=== PATIENT | female | born 2005 | race Hispanic/Latino ===

== ENCOUNTER 2024-06-13 23:53 | Emergency (ER) | payer BC ==
[~2024-06-13] VITALS: Ht 149.9 cm; Wt 56.7 kg
--- NOTE | 2024-06-14 00:15 | ERN ---
General Chief Complaint: Nausea,Vomiting,Diarrhea Stated Complaint: N/V/ABD PAIN Time Seen by MD: 00:02 Source: patient History of Present Illness Initial Comments Patient is a healthy 18-year-old female who has been experiencing nausea and emesis since 3:00 a.m. yesterday i.e. 9 hours. And now comes in feeling numbness and tingling in her hands and feet and feeling like she has double vision even though she does not and some numbness in her lips as well. She states no fever but positive chills. No one else in the household has the symptoms Allergies: Coded Allergies: No Known Allergies (Unverified Allergy, Unknown, 06/13/24) Past Medical History Past Medical History: No Pertinent History Past Surgical History: None Female( History) LMP: May 27, 2024 Constitutional: (+) chills EENTM: (-) eye pain, (-) blurred vision, (-) tearing, (-) double vision, (-) ear pain, (-) ear discharge, (-) nose pain, (-) nose congestion, (-) throat pain, (-) Throat swelling, (-) mouth pain, (-) tooth pain, (-) mouth swelling, (-) other documentation Respiratory: (-) cough, (-) orthopnea, (-) short of breath, (-) stridor, (-) wheezing, (-) other documentation Cardiovascular: (-) chest pain, (-) edema, (-) palpitations, (-) syncope, (-) dyspnea on exertion, (-) other documentation Gastrointestinal/Abdominal: (+) nausea, (+) vomiting Musculoskeletal: (-) Neck pain, (-) back pain, (-) Flank Pain, (-) joint pain, (-) joint swelling, (-) muscle pain, (-) muscle stiffness, (-) gout, (-) other documentation Skin: (-) laceration, (-) contusion, (-) abrasion, (-) abscess, (-) rash, (-) change in color, (-) change in hair, (-) change in nails, (-) diaphoresis, (-) dryness, (-) other documentation Neuro: (-) altered mental status, (-) headache, (-) syncope, (-) paralysis, (-) numbness, (-) seizure, (-) pre-existing deficit, (-) tremors, (-) weakness, (-) dizziness, (-) slurred speech, (-) vertigo, (-) other documentation Physical Exam General Appearance: (+) mild distress Orientation: (+) oriented x 3 Head/Face Trauma: No Eye: bilateral eye normal inspection, bilateral eye PERRL, bilateral eye EOMI Ear, Nose, Throat: (+) hearing grossly normal, (+) normal ENT inspection, (+) normal pharynx Neck: (+) normal inspection, (+) supple, (+) full range of motion Respiratory: (+) chest non-tender, (+) lungs clear, (+) well ventilated Heart: (+) regular, (+) no gallop Vascular: (+) no edema, (+) normal peripheral pulse Gastrointestinal: (+) soft, (+) non-tender, (+) bowel sound present Results Laboratory and Microbiology Lab and Micro Result Laboratory Tests Test 06/14/24 00:01 06/14/24 00:32 Urine Color LIGHT-YELLOW (YELLOW) Urine Appearance CLEAR (CLEAR) Urine pH 6.0 (5.0-8.0) Urine Specific [place] 1.023 (1.001-1.031) Urine Protein 10 mg/dL (NEGATIVE) H Urine Glucose (UA) NEGATIVE mg/dL (NEGATIVE) Urine Ketones 60 mg/dL (NEGATIVE) H Urine Occult Blood NEGATIVE (NEGATIVE) Urine Nitrate NEGATIVE (NEGATIVE) Urine Bilirubin NEGATIVE mg/dL (NEGATIVE) Urine Urobilinogen 0.2 mg/dL (0.2-1.0) Urine Leukocyte Esterase NEGATIVE Vincenzo/uL Urine RBC 0-1 /HPF (0-1) Urine WBC 2-5 /HPF (0-1) H Urine Squamous Epithelial Cells RARE /HPF (0-2) Urine Bacteria FEW /HPF (None Seen) Urine HCG, Qualitative NEGATIVE (NEGATIVE) White Blood Count 13.1 K/uL (4.8-10.8) H Red Blood Count 4.38 MIL/uL (4.00-5.50) Hemoglobin 12.2 g/dL (12.0-16.0) Hematocrit 37.1 % (36-48) Mean Corpuscular Volume 84.7 fL (80-100) Mean Corpuscular Hemoglobin 27.9 pg (27.0-33.0) Mean Corpuscular Hemoglobin Concent 32.9 g/dL (32.0-36.0) Red Cell Distribution Width 12.7 % (11.0-15.5) Platelet Count 336 K/uL (130-400) Mean Platelet Volume 11.4 fL (7.5-10.5) H Immature Granulocyte % (Auto) 0.4 % (0-1) Neutrophils (%) (Auto) 88.1 % (40.0-77.0) H Lymphocytes (%) (Auto) 5.3 % (21.0-51.0) L Monocytes (%) (Auto) 5.9 % (3.0-13.0) Eosinophils (%) (Auto) 0.1 % (0.0-8.0) Basophils (%) (Auto) 0.2 % (0.0-5.0) Neutrophils # (Auto) 11.6 K/uL (1.8-7.7) H Lymphocytes # (Auto) 0.7 K/uL (1.0-4.8) L Monocytes # (Auto) 0.8 K/uL (0.1-1.0) Eosinophils # (Auto) 0.01 K/uL (0.00-0.70) Basophils # (Auto) 0.03 K/uL (0.00-0.20) Absolute Immature Granulocyte (auto 0.05 K/uL (0-1) Nucleated Red Blood Cells 0.0 % (0.0-0.19) White Cell Morphology Comment See comments Sodium Level 136 mmol/L (136-145) Potassium Level 4.3 mmol/L (3.5-5.1) Chloride Level 99 mmol/L (101-111) L Carbon Dioxide Level 31 mmol/L (21-32) Blood Urea Nitrogen 13 mg/dL (7-18) Creatinine 0.6 mg/dL (0.5-1.0) Glomerular Filtration Rate Calc 133 mL/min (>90) Random Glucose 116 mg/dL (70-105) H Total Calcium 9.2 mg/dL (8.5-10.1) MDM I suspect the patient is dehydrated and that is the cause of most of her symptom s. I will start by giving her fluid measuring her orthostatic vital signs and drank chemistry and CBC and UA. This orthostatic vital signs are highly suggestive of dehydration. From lying to standing the heart rate goes from 99-114 the systolic pressure goes from 119- 101. After 2 L of fluid the patient's states that she feels better. She is able to get out of bed and walk. She has had no nausea or vomiting since I gave her the Zofran. She is still concerned about this funny visual sensation she has where she feels like her eyeballs are in her forehead. I told her to drink lots of fluid until she urine is clear and then she will know that her fluid is adequate. I have no ideas about her eye pain she should see her primary care physician and maybe go see an break off worker. I wrote for a prescription for Zofran. ED Course Orders Procedure Category Date Status Time Urinalysis Profile LAB 06/14/24 Complete 00:00 ,Urine Test LAB 06/14/24 Complete 00:00 Cbc With Differential LAB 06/14/24 Complete 00:15 Lactated Ringers PHA 06/14/24 Complete 1000ml (Lactated 00:30 Ondansetron 4mg Inj PHA 06/14/24 Complete (Zofran 4mg Inj) 00:30 Basic Metabolic Panel LAB 06/14/24 Complete 00:15 Orthostatic Vital CPOE 06/14/24 Transmitted Signs 00:15 Lactated Ringers PHA 06/14/24 Complete 1000ml (Lactated 01:52 Potassium Chl 10% PHA 06/14/24 Complete Elixir 20meq (Kcl 10% 02:00 Sod Borate/Boric PHA 06/14/24 Complete Ac/H2o/Nacl (Eye Wash 02:30 Current Medications Medications (Trade) Dose Ordered Sig/Cinthia Route PRN Reason Start Time Stop Time Status Last Admin Dose Admin Irrigating Solution (Eye Wash Solution) 120 ml ONCE ONCE OP 06/14/24 02:30 06/14/24 02:31 DC 06/14/24 02:21 Lactated Ringer's 1,000 ml @ 0 mls/hr ONCE ONCE IV 06/14/24 00:30 06/14/24 00:31 DC 06/14/24 00:32 Lactated Ringer's (Lactated Ringers 1000ml) 1,000 ml BOLUS STAT IV 06/14/24 01:52 06/14/24 01:55 DC 06/14/24 02:16 Ondansetron HCl (zoFRAN 4MG INJ) 4 mg ONCE ONCE IVP 06/14/24 00:30 06/14/24 00:31 DC 06/14/24 00:32 Potassium Chloride (KCl 10% Elixir 20meq/15ml) 20 meq ONCE ONCE PO 06/14/24 02:00 06/14/24 02:01 DC 06/14/24 02:14 Vital Signs Date Time Temp Pulse Resp B/P (MAP) Pulse Ox O2 Delivery O2 Flow Rate FiO2 06/14/24 02:32 89 16 116/53 99 Room Air* 0 21 06/14/24 00:18 114 16 101/53 96 Room Air* 0 21 06/14/24 00:16 106 16 108/58 98 Room Air* 0 21 06/14/24 00:14 99 16 119/56 96 Room Air* 0 06/14/24 00:10 97.5 106 16 103/61 99 Room Air* 0 06/13/24 23:54 97.2 109 18 137/67 98 Room Air DX & DISP Disposition: Discharge Departure Impression: Primary Impression: Dehydration determined by examination Condition: Stable Scripts Promethazine HCl (Phenergan) 6.25 Mg/5 Ml Syrup 10 ML PO QID for motion sickness, #400 ML 0 Refills Prov: WILBER ESCOBAR MD 06/14/24 WILBER ESCOBAR MD Jun 14, 2024 00:15
[2024-06-14 00:27] LABS: APPEARANCE,URINE CLEAR (CLEAR); BILIRUBIN,URINE NEGATIVE (NEGATIVE); COLOR,URINE LIGHT-YELLOW (YELLOW); GLUCOSE, URINE (UA) NEGATIVE (NEGATIVE); KETONES,URINE 60 mg/dL (NEGATIVE); LEUKOCYTE ESTERASE ,URINE NEGATIVE Leu/uL (NEGATIVE); NITRATE,URINE NEGATIVE (NEGATIVE); OCCULT BLOOD,URINE NEGATIVE (NEGATIVE); PROTEIN,URINE 10 mg/dL (NEGATIVE); UROBILINOGEN,URINE 0.2 mg/dL (0.2-1.0)
[2024-06-14] MEDS: ondanSETRON 4MG INJ IVP ONE (00:32)
[2024-06-14] MEDS: LACTATED RINGERS 1000ML 1,000 ML IV ONE (00:32)
[2024-06-14 00:41] LABS: ADD UA MICROSCOPIC NO
[2024-06-14 00:43] LABS: BACTERIA,URINE FEW /HPF (None Seen); MUCUS,URINE RARE LPF (None Seen); RBC,URINE 0-1 /HPF (0-1); SQUAMOUS EPITHELIAL CELL,UR RARE /HPF (0-2)
[2024-06-14 00:52] LABS: BASOPHILS # (AUTO) 0.03 K/uL (0.00-0.20); BASOPHILS % (AUTO) 0.2 % (0.0-5.0); EOSINOPHILS # (AUTO) 0.01 K/uL (0.00-0.70); EOSINOPHILS % (AUTO) 0.1 % (0.0-8.0); HEMATOCRIT 37.1 % (36-48); IMMATURE GRANULOCYTE ABSOLUTE 0.05 K/uL (0-1); LYMPHOCYTES # (AUTO) 0.7 K/uL (1.0-4.8); LYMPHOCYTES % (AUTO) 5.3 % (21.0-51.0); MEAN CORPUSCULAR HEMOGLOBIN 27.9 pg (27.0-33.0); MEAN CORPUSCULAR HGB CONC 32.9 g/dL (32.0-36.0); MEAN CORPUSCULAR VOLUME 84.7 fL (80-100); MONOCYTES # (AUTO) 0.8 K/uL (0.1-1.0); MONOCYTES % (AUTO) 5.9 % (3.0-13.0); NEUTROPHILS # (AUTO) 11.6 K/uL (1.8-7.7); NEUTROPHILS % (AUTO) 88.1 % (40.0-77.0); PLATELET COUNT (AUTO) 336 K/uL (130-400); RED BLOOD CELL COUNT(AUTO) 4.38 MIL/uL (4.00-5.50); RED CELL DISTRIBUTION WIDTH 12.7 % (11.0-15.5); WHITE BLOOD COUNT (AUTO) 13.1 K/uL (4.8-10.8)
[2024-06-14 01:03] LABS: CREATININE 0.6 mg/dL (0.5-1.0); POTASSIUM 4.3 mmol/L (3.5-5.1)
[2024-06-14] MEDS: PoTASSium chl 10% ELIXIR 20MEQ 20 MEQ/15 ML UDCUP PO ONE (02:14)
[2024-06-14] MEDS: LACTATED RINGERS 1000ML IV STA (02:16)
[2024-06-14] MEDS: NA BORATE/BORIC AC/H2O/NACL 120 ML OPHTH IRRIG SOLN OP ONE (02:21)
[2024-06-14] MEDS ORDERED: PROM6.2527 PO (03:10)
[2024-06-14 03:21] VITALS: BP 114/58; PULSE 86; RESP 16; TEMP 98.2; O2SAT 99
== END 2024-06-14 03:23 | disposition home or self-care (01) ==
LOC: EDH 23:53
DX: E86.0 Dehydration (principal)
CPT/HCPCS: 99284; 80048; 85025; 81003; 81025; 36415; 96374; J7120 ×2; J2405